=== PATIENT | female | born 1945 | race Caucasian/White ===

== ENCOUNTER 2020-04-15 07:53 | Outpatient (CLI) | payer MEDICARE, BC, SELFPAY ==
--- NOTE | 2020-04-15 07:48 | PDOC.PAIN_ITS ---
Pain Clinic Procedure Note Procedure Note Procedure Note: BILATERAL GENICULAR NERVE BLOCK Date of Service: April 15, 2020 Patient: STANFORD HENDERSON Provider: STEPH JOSE MD Pre-operative diagnosis: osteoarthritis of knees Post-operative diagnosis: same as above COMMENTS: Pre-procedure VAS to the left knee is 7/10, right knee is 7/10. Patient was evaluated by Ms Sofia Duque APRN in our pain clinic. patient is status post bilateral knee replacement who continues to experience throbbing and burning pain over her knee caps that is functional debilitating. She finds it difficult kneeling to enjoy gardening. STANFORD HENDERSON has been [facility] for BILATERAL genicular nerve block. STANFORD was interviewed and the medical record reviewed. There were no medical, pharmacologic, radiographic or other structural contraindications to attempting fluoroscopically guided BILATERAL genicular nerve block. Risks and potential side effects as well as potential benefit of the procedure were reviewed with STANFORD , and her voiced concerns were addressed. After I believed that the patient was completely informed, the printed consent form was signed. Standard time-out procedure was performed. STANFORD was placed in the supine position on the fluoroscopy table and automated blood pressure cuff and pulse oximeter applied. The skin entry points for approaching RIGHT superolateral genicular nerve, the superomedial genicular nerve and the inferomedial genicular was identified under the most advantageous fluoroscopic view and marked. Following thorough Chlorhexadine preparation of the skin and draping, 1% lidocaine infiltration of the skin entry point and subcutaneous tissues was accomplished using a 1.5 25G needle. Next, the 3.5 25G spinal needle was advanced to os at the location of the specific nerve root using fluoroscopic guidance. Next, 1 cc of 0.5% Buipovocaine was injected at each site. The needles were removed without difficulty. The same thing was repeated for the LEFT superolateral genicular nerve, the superomedial genicular nerve and inferomedial genicular nerves. STANFORD's vital signs were stable throughout the procedure and were as recorded in the docflowsheet by the nursing staff. If given, dosages of intravenous drugs for anxiolysis and analgesia were documented in MAR. Follow up plans and appointments were discussed with the STANFORD . Post procedure instruction was given as documented in nursing documentation and having met discharge criteria, STANFORD was discharged from the [facility]. COMMENTS: No complications. Post-procedure VAS to the bilateral knee is 0/10. The patient will keep track of her bilateral knee pain over the next four hours. If STANFORD has sufficient pain relief, STANFORD will be a candidate for radiofrequency ablation at the same nerves. Chris WJ1, Sai SJ, John JG, Deacon JG, Yvon BASS, Carlee PH, Francis JW. Radiofrequency treatment relieves chronic knee osteoarthritis pain: a double-blind randomized controlled trial. Pain. 2011 Jan;152(3):481-7. doi: 10.1016/[email or web address].2010.09.029. Fide S1, Sagar ON2, Gray Y3, ?zl?lerden P2, Kevin U1, Scout ?m?rl? I. Which one is more effective for the clinical treatment of chronic pain in knee osteoarthr itis: radiofrequency neurotomy of the genicular nerves or intra-articular injection? Int J Rheum Dis. 2016 Jun 12. F/U with Ms Neto APRN. I personally performed this entire procedure. Steph Jose MD Pain Management
[2020-04-15 08:03] VITALS: BP 144/75; PULSE 74; RESP 16; TEMP 36.9; O2SAT 98
[2020-04-15 08:48] VITALS: PULSE 69; O2SAT 98
--- NOTE | 2020-04-15 08:52 | DI.RAD_ITS ---
EXAM: XR PAIN CLINIC FLUORO JOINT IN CLINICAL HISTORY: Dx: Osteoarthritis of knee TECHNIQUE: 2D and realtime digital imaging was performed. Fluoroscopy was provided for guidance wit h pain clinic injection. COMPARISON: No exams were available for comparison FINDINGS: Please see procedure note for details. FLUORO TIME: 45.4 seconds RADIATION DOSE DELIVERED:
[2020-04-15] MEDS: Omnipaque 240 MG/ML 50 ML BTL IJ (09:02)
[2020-04-15] MEDS: Bupivacaine 0.5% Pres-Free 10 ML VIAL IJ (09:02)
== END 2020-04-15 08:13 ==
PROVIDERS: PCP Family Medicine; Visit Provider Internal Medicine
DX: M17.0 Bilateral primary osteoarthritis of knee (principal)
CPT/HCPCS: 64640; 77002; Q9967